=== PATIENT | female | born 1985 | race Caucasian/White ===

== ENCOUNTER 2019-11-08 08:20 | Inpatient (IN) | payer MEDICAID ==
[~2019-11-08] VITALS: Ht 157.5 cm; Wt 67.6 kg
[~2019-11-08 08:20] MED LIST: PREN-385 PO
[2019-11-08 08:23] VITALS: BP 163/104
--- NOTE | 2019-11-08 08:30 | NUR ---
Patient ambulated to bed 4. RN evaluating patient at bedside.
--- NOTE | 2019-11-08 08:40 | NUR ---
PT C/O OF LEFT CHEST PAIN 7/10 UPON BREATHING AND RADIATES TO LEFT ARM FEW HOURS PTC , PT AWAKE , ALERT , AFIBRILE , AMBULATORY WITH STEADY GAIT. SCE , CBS BLF , FLAY SOFT NABS NONTENDER . PMHS HTN MEDS HTN
--- NOTE | 2019-11-08 08:46 | NUR ---
dr vogel at bedside evaluating pt
[2019-11-08] MEDS ORDERED: NITROGLYCERIN 0.4 MG TAB SL ONE ×2 (08:50→09:25)
[2019-11-08] MEDS ORDERED: ASPIRIN 81 MG TAB.CHEW PO ONE (08:50)
--- NOTE | 2019-11-08 09:00 | NUR ---
KWAME ANTONIO AT BEDSIDE DOIN EKG.
--- NOTE | 2019-11-08 09:01 | NUR ---
LAB AT BEDSIDE DRAWING BLOOD.
[2019-11-08 09:10] LABS: BASOPHILS % (AUTO) 0.9 % (0.0-2.0); EOSINOPHILS # (AUTO) 0.1 K/uL (0-0.4); EOSINOPHILS % (AUTO) 2.2 % (0.0-4.0); HEMATOCRIT 38.8 % (36-48); HEMOGLOBIN 13.3 g/dL (12.0-16.0); LYMPHOCYTES # (AUTO) 0.5 K/uL (2.5-16.5); MEAN CORPUSCULAR HEMOGLOBIN 33 pg (27-31); MEAN CORPUSCULAR HGB CONC 34 g/dL (33-37); MEAN CORPUSCULAR VOLUME 95.6 fL (80-94); MONOCYTES # (AUTO) 0.5 K/uL (0.8-1.0); MONOCYTES % (AUTO) 9.2 % (1.7-9.3); NEUTROPHILS % (AUTO) 78.7 % (42.2-75.2); PLATELET COUNT (AUTO) 297 K/uL (140-450); RED BLOOD CELL COUNT(AUTO) 4.06 MIL/uL (4.20-5.40); RED CELL DISTRIBUTION WIDTH 13.8 % (11.6-13.7); WHITE BLOOD COUNT (AUTO) 5.1 K/uL (4.8-10.8)
--- NOTE | 2019-11-08 09:15 | NUR ---
XRAY AT BEDSIDE .
--- NOTE | 2019-11-08 09:24 | NUR ---
DR CANELA AT BEDSIDE REEVALUATING PT.
[2019-11-08 09:31] LABS: ALBUMIN 3.7 g/dL (3.4-5.0); ANION GAP 9.2 (8-16); CREATININE 0.9 mg/dL (0.6-1.3); POTASSIUM 3.2 mmol/L (3.5-5.1); TOTAL BILIRUBIN 0.8 mg/dL (0.0-1.0)
[2019-11-08] MEDS ORDERED: ONDANSETRON 4 MG/2 ML VIAL IVP ONE (10:00)
[2019-11-08] MEDS ORDERED: MORPHINE SULFATE 2 MG/ML SYR IVP ONE (10:00)
[2019-11-08] MEDS ORDERED: ACETAMINOPHEN EXTRA STRENGTH 500 MG TAB PO ONE (10:00)
[2019-11-08] MEDS ORDERED: MAGNESIUM OXIDE 400 MG TAB PO ONE (10:20)
[2019-11-08] MEDS ORDERED: LORazepam 2 MG/ML VIAL IM/IVP PRN (10:20)
[2019-11-08] MEDS ORDERED: HYDROcodone/APAP 5/325 MG 1 TAB TAB PO PRN (10:20)
[2019-11-08] MEDS ORDERED: MORPHINE SULFATE 2 MG/ML SYR IVP PRN (10:20)
[2019-11-08] MEDS ORDERED: ZOLPIDEM 5 MG TAB PO PRN (10:20)
[2019-11-08] MEDS ORDERED: DOCUSATE SODIUM 100 MG GELCAP PO PRN (10:20)
[2019-11-08] MEDS ORDERED: ACETAMINOPHEN 325 MG TAB PO PRN (10:20)
[2019-11-08] MEDS ORDERED: POTASSIUM CHLORIDE 10 MEQ TABER PO ONE (10:20)
[2019-11-08] MEDS ORDERED: ONDANSETRON 4 MG/2 ML VIAL IM/IVP PRN (10:20)
[2019-11-08] MEDS ORDERED: NITROGLYCERIN 0.4 MG TAB SL PRN (10:25)
[2019-11-08] MEDS ORDERED: CHLO50TA33 PO (10:40)
[2019-11-08 10:50] VITALS: BP 147/96
--- NOTE | 2019-11-08 10:50 | NUR ---
RECEIVED PT FROM ER NURSE, PT RESTING IN BED, PT AAOX4, PT HAS LEFT AC 20G, SKIN INTACT, RESPIRATIONS ARE EVEN AND UNLABORED ON ROOM AIR, PT IS STABLE, DX CHEST PAIN, PT DENIES ANY PAIN, PT INTRODUCE TO THE ROOM, INTRODUCE SELF, UPDATED WHITEBOARD, SAFETY MEASURES IN PLACE, ALL NEEDS MET AT THIS TIME, WILL CONTINUE TO MONITOR.
--- NOTE | 2019-11-08 10:52 | NUR ---
Patient will be admitted to care of DR baxter. Admited to rust. Will go to room 105b. Belongings list completed. Report to leeann lunsford.
[2019-11-08 10:54] LABS: APPEARANCE,URINE CLEAR (CLEAR); BILIRUBIN,URINE NEGATIVE (NEGATIVE); BLOOD, URINE 2+ (NEGATIVE); COLOR,URINE DARK YELLOW (YELLOW); LEUKOCYTE ESTERASE ,URINE NEGATIVE (NEGATIVE); NITRITE, URINE NEGATIVE (NEGATIVE); PH,URINE 5.5 (5.0-9.0); UGLUCOSE TRACE (NEGATIVE)
[2019-11-08] MEDS ORDERED: DEXTROSE 50% 50 ML SYR IVP PRN (11:05)
[2019-11-08] MEDS ORDERED: INSULIN LISPRO SLIDING SCALE 100 UNITS/ML VIAL SUBQ PRN (11:05)
[2019-11-08 11:09] LABS: BARBITURATE, URINE NEGATIVE ng/ml (NEG <=200); BENZODIAZEPINE, URINE NEGATIVE ng/mL (NEG <=200); CANNABINOID, URINE NEGATIVE ng/mL (NEG <=50); COCAINE, URINE POSITIVE ng/mL (NEG <=300); OPIATE, URINE NEGATIVE ng/mL (NEG <=2000); PHENCYCLIDINE SCREEN,URINE NEGATIVE ng/mL (NEG <=25)
[2019-11-08 11:20] LABS: WBC,URINE 0-5 /HPF (0-5)
[2019-11-08] MEDS: BLOOD GLUCOSE MONITORING 1 DEV DEV FS SCH ×3 (11:30→20:36)
[2019-11-08] MEDS: NACL 0.9% 1,000 ML IV SCH (11:35)
[2019-11-08 11:36] LABS: CHOL/HDL RATIO 1.6 (1-4.5); PHOSPHORUS 2.7 mg/dL (2.5-4.9); THYROID STIMULATING HORMONE 2.73 uIU/mL (0.34-3.74)
[2019-11-08 12:00] VITALS: BP 145/98
[2019-11-08] MEDS ORDERED: SERT25TA84 PO (12:16)
[2019-11-08] MEDS ORDERED: SERTRALINE 50 MG TAB PO SCH (13:00)
--- NOTE | 2019-11-08 13:26 | NUR ---
ADMINISTERED ORDERED MEDICATION, EDUCATION GIVEN, PT VERBALIZED UNDERSTANDING, PT STABLE, CALL LIGHT WITHIN REACH.
--- NOTE | 2019-11-08 15:50 | NUR ---
PT SITTING IN BED WATCHING TV, NO SIGNS OF DISTRESS NOTED, RESPIRATIONS ARE EVEN AND UNLABORED, CALL LIGHT WITHIN REACH.
[2019-11-08 16:00] VITALS: BP 164/103
--- NOTE | 2019-11-08 17:00 | NUR ---
NOTIFIED DR GRAYSON PT BLOOD PRESSURE 164/103, DR STATED TO CONTINUE TO MONITOR. WILL RE-CHECK BLOOD PRESSURE IN 1 HOUR.
--- NOTE | 2019-11-08 19:00 | NUR ---
GAVE REPORT TO NIGHT NURSE FOR CONTINUITY OF CARE, PT STABLE.
--- NOTE | 2019-11-08 19:01 | NUR ---
RECEIVED BEDSIDE SHIFT REPORT FROM DAYSMDFT NURSE SLATER FOR CONTINUITY OF CARE. PT AWAKE IN BED. BLOOD PRESSURE ASSESSED DUE TO REPORT OF ELEVATED BP: 151/108. PT RESPIRATIONS EVEN AND UNLABORED ON RA. SAFETY MEASURES IN PLACE. CALL-LIGHT WITHIN REACH WILL INFORM .
[2019-11-08] MEDS ORDERED: METOPROLOL 25 MG TAB ONE (19:36)
[2019-11-08 19:37] VITALS: BP 145/102
[2019-11-08] MEDS ORDERED: CRUSHER, PILL MC ONE (19:42)
--- NOTE | 2019-11-08 19:44 | NUR ---
INFORMED MD YODER ABOUT PT ELEVATED B/P 151/108. PER OK TO ADMINISTER LOPRESSOR NOW AND REASSESS B/P IN 1 HOUR. MEDICATION ADMINISTERED PT TOLERATED WELL. NO SIGNS OF DISTRESS NOTED. RESPIRATIONS EVEN AND UNLABORED. PT DENIES PAIN. SAFETY MEASURES IN PLACE CALL LIGHT WITHIN REACH. WILL CONTINUE TO MONITOR
--- NOTE | 2019-11-08 20:36 | NUR ---
ADMINISTERED 2100 MEDICATIONS. PT B/S 144 NO COVERAGE REQUIRED. PATIENT TOLERATED MEDICATION WELL.
--- NOTE | 2019-11-08 20:55 | NUR ---
B/P REASSESSED. PT BP 148/96 PULSE 59. SPO2: 98%. NO SIGNS OF DISTRESS NOTED. PATIENT AWAKE IN ROOM. WILL CONTINUE TO MONITOR
[2019-11-08] MEDS ORDERED: METOPROLOL 25 MG TAB PO SCH (21:00)
[2019-11-08] MEDS ORDERED: ATORVASTATIN 20 MG TAB PO SCH (21:00)
--- NOTE | 2019-11-08 22:00 | NUR ---
MADE ROUNDS. PT STILL AWAKE. NO C/O ANY DISCOMFORT NOR PAIN NOTED.
--- NOTE | 2019-11-09 | NUR ---
LATEST BP TAKEN 145/94. NO C/O ANY DISCOMFORT NOTED. WILL CONTINUE TO MONITOR.
[2019-11-09 00:06] VITALS: BP 145/94
--- NOTE | 2019-11-09 02:00 | NUR ---
MADE ROUNDS. ASLEEP. NO S/S OF ANY PAIN NOTED. WILL CONTINUE TO MONITOR.
[2019-11-09] MEDS: NACL 0.9% 1,000 ML IV SCH (02:59)
[2019-11-09 04:00] VITALS: BP 159/110
--- NOTE | 2019-11-09 04:00 | NUR ---
BLOOD PRESSURE ELEVATED 159/110,HR-72 R-18 O2 SAT 99% RA. DR. YODER MADE AWARE. WILL ORDER BP MED.
[2019-11-09] MEDS ORDERED: METOPROLOL 25 MG TAB PO SCH ×2 (04:30→09:00)
[2019-11-09] MEDS ORDERED: METOPROLOL 25 MG TAB ONE (04:31)
[2019-11-09] MEDS: BLOOD GLUCOSE MONITORING 1 DEV DEV FS SCH (05:28)
[2019-11-09 06:30] VITALS: BP 154/98
--- NOTE | 2019-11-09 06:30 | NUR ---
BLOOD PRESSURE WAS RECHECKED RESULT 154/98 HR-53,R-18 , O2 SAT 97%. WILL ENDORSE TO AM NURSE.
--- NOTE | 2019-11-09 07:10 | NUR ---
RECEIVE REPORT FROM NIGHT NURSE FOR CONTINUITY OF CARE, [id number], , PT IS STABLE WITH EVEN AND UNLABORED RESPIRATIONS ON ROOM AIR. PT HAS LEFT AC 20G SALINE LOCK, SKIN INTACT, INTRODUCE SELF, UPDATED WHITEBOARD, SAFETY MEASURES IN PLACE, CALL LIGHT WITHIN REACH.
--- NOTE | 2019-11-09 07:15 | NUR ---
ENDORSED PATIENT TO DAYSHIFT NURSE BRYON. BESIDE REPORT PROVIDED FOR CONTINUITY OF CARE. PT IN STABLE CONDITION
[2019-11-09 07:24] LABS: BASOPHILS % (AUTO) 1.3 % (0.0-2.0); EOSINOPHILS # (AUTO) 0.2 K/uL (0-0.4); EOSINOPHILS % (AUTO) 6.3 % (0.0-4.0); HEMATOCRIT 41.3 % (36-48); LYMPHOCYTES # (AUTO) 1.1 K/uL (2.5-16.5); LYMPHOCYTES % (AUTO) 30.4 % (20.5-51.1); MEAN CORPUSCULAR HEMOGLOBIN 33 pg (27-31); MEAN CORPUSCULAR HGB CONC 34 g/dL (33-37); MONOCYTES # (AUTO) 0.4 K/uL (0.8-1.0); MONOCYTES % (AUTO) 11.2 % (1.7-9.3); NEUTROPHILS # (AUTO) 1.9 K/uL (1.8-7.7); NEUTROPHILS % (AUTO) 50.8 % (42.2-75.2); PLATELET COUNT (AUTO) 290 K/uL (140-450); RED BLOOD CELL COUNT(AUTO) 4.26 MIL/uL (4.20-5.40); RED CELL DISTRIBUTION WIDTH 13.9 % (11.6-13.7); WHITE BLOOD COUNT (AUTO) 3.7 K/uL (4.8-10.8)
[2019-11-09 07:32] LABS: ANION GAP 9.2 (8-16); CREATININE 0.8 mg/dL (0.6-1.3); POTASSIUM 4.2 mmol/L (3.5-5.1)
[2019-11-09 07:44] LABS: PHOSPHORUS 3.4 mg/dL (2.5-4.9)
[2019-11-09 08:00] VITALS: BP 150/107
--- NOTE | 2019-11-09 08:39 | NUR ---
ADMINISTERED SCHEDULED MEDICATION, PT EDUCATION GIVEN, PT VERBALIZED UNDERSTANDING, PT TOLERATED MEDICATION WELL, PT IS STABLE, CALL LIGHT WITHIN REACH.
--- NOTE | 2019-11-09 08:45 | NUR ---
PATIENT HAS BEEN SCREENED AND CATEGORIZED MODERATE NUTRITION RISK. PATIENT WILL BE SEEN WITHIN 3-5 DAYS OF ADMISSION. 11/10/19 11/12/[address]
[2019-11-09] MEDS ORDERED: SERTRALINE 50 MG TAB PO SCH (09:00)
[2019-11-09] MEDS ORDERED: CHLORTHALIDONE 25MG TABLET PO SCH (09:00)
[2019-11-09] MEDS ORDERED: LISINOPRIL 5 MG TAB PO SCH ×2 (09:00)
[2019-11-09] MEDS ORDERED: ASPIRIN 81 MG TAB.CHEW PO SCH (09:00)
--- NOTE | 2019-11-09 11:00 | NUR ---
PT SITTING IN BED WATCHING TV, RESPIRATIONS ARE EVEN AND UNLABORED ON ROOM AIR, PT IS STABLE, CALL LIGHT WITHIN REACH.
[2019-11-09] MEDS ORDERED: INFLUENZA VACCINE QUAD 0.5 ML SYR IMVAC PRN (11:45)
--- NOTE | 2019-11-09 12:10 | NUR ---
PT DISCHARGED HOME. IV TAKEN OUT, PT DISCHARGE INSTRUCTIONS GIVEN, PT RECEIVED FLU VACCINE AND EDUCATION, PNA- N/A, PT AMBULATED TO LOBBY WITH STEADY GAIT, PT STABLE.
== END 2019-11-09 12:10 | disposition home or self-care (01) | DRG 756 ==
LOC: MED 08:20 → MTU 10:19
PROVIDERS: ADMIT General Practice; ATTEND General Practice
DX: F41.9 Anxiety disorder, unspecified (principal); E87.6 Hypokalemia; F14.10 Cocaine abuse, uncomplicated; F15.10 Other stimulant abuse, uncomplicated; I10 Essential (primary) hypertension; R73.9 Hyperglycemia, unspecified; Z79.899 Other long term (current) drug therapy; Z98.82 Breast implant status; Z82.49 Family history of ischemic heart disease and other diseases of the circulatory system; Z23 Encounter for immunization
CPT/HCPCS: 36415; 71045; 80048; 80053; 80305; 81001; 82948; 83036; 83690; 83735; 83880; 84100; 84134; 84443; 84484; 85025; 85610; 85730; 87081; 93005; 96374; 96375; 99291; J2270; J2405; J7030; Q0092

== ENCOUNTER 2022-01-21 21:28 | Emergency (ER) | payer MEDICAID ==
[~2022-01-21] VITALS: Ht 157.5 cm; Wt 68.0 kg
[~2022-01-21 21:28] MED LIST changes: +CHLO50TA33 PO; -PREN-385 PO; +SERT-514 PO
[2022-01-21 21:45] VITALS: BP 141/60
--- NOTE | 2022-01-22 00:14 | NUR ---
called first time- no show in lobby or outside.
--- NOTE | 2022-01-22 00:27 | NUR ---
Called second time- no show in lobby or outside.
--- NOTE | 2022-01-22 00:36 | NUR ---
PATIENT LEFT WITHOUT BEING SEEN BY DR. SCHULZ. NO FURTHER CARE PROVIDED FOR PATIENT.
== END 2022-01-22 00:36 | disposition left against medical advice (07) ==
LOC: MED 21:28
DX: S00.85XA Superficial foreign body of other part of head, initial encounter (principal); Z53.21 Procedure and treatment not carried out due to patient leaving prior to being seen by health care provider; V49.9XXA Car occupant (driver) (passenger) injured in unspecified traffic accident, initial encounter; Y93.89 Activity, other specified; Y92.410 Unspecified street and highway as the place of occurrence of the external cause; Y99.8 Other external cause status

== ENCOUNTER 2023-04-29 15:05 | Inpatient (IN) | payer MEDICAID ==
[~2023-04-29] VITALS: Ht 162.6 cm; Wt 77.6 kg
[2023-04-29 15:15] VITALS: BP 168/114; PULSE 78; RESP 17; TEMP 97.4; O2SAT 97
[2023-04-29] MEDS ORDERED: KETOROLAC 30 MG/ML VIAL IM ONE (16:10)
[2023-04-29] MEDS ORDERED: CLONIDINE HYDROCHLORIDE 0.1 MG TAB PO ONE (16:10)
[2023-04-29] MEDS ORDERED: MAG SULF 2000 MG/WATER PREMIX 50 ML IV ONE (17:05)
[2023-04-29 17:11] LABS: APPEARANCE,URINE CLEAR (CLEAR); BILIRUBIN,URINE NEGATIVE (NEGATIVE); BLOOD, URINE 1+ (NEGATIVE); COLOR,URINE YELLOW (YELLOW); LEUKOCYTE ESTERASE ,URINE NEGATIVE (NEGATIVE); NITRITE, URINE NEGATIVE (NEGATIVE); PROTEIN,URINE 1+ (NEGATIVE); UGLUCOSE NEGATIVE (NEGATIVE); UROBILINOGEN,URINE 0.2 EU/dL (0.2 - 1)
[2023-04-29 17:31] LABS: BACTERIA,URINE 2+ /HPF (None Seen); SQUAMOUS EPITHELIAL CELL,UR 20-50 /LPF (0-3 (FEW)); WBC,URINE NONE SEEN /HPF (0-5)
[2023-04-29 17:44] LABS: BASOPHILS % (AUTO) 0.7 % (0.0-2.0); EOSINOPHILS % (AUTO) 0.2 % (0.0-4.0); HEMATOCRIT 35.6 % (36-48); HEMOGLOBIN 12.2 g/dL (12.0-16.0); LYMPHOCYTES % (AUTO) 16.3 % (20.5-51.1); MEAN CORPUSCULAR HEMOGLOBIN 34 pg (27-31); MEAN CORPUSCULAR HGB CONC 34 g/dL (33-37); MEAN CORPUSCULAR VOLUME 99.1 fL (80-94); MONOCYTES # (AUTO) 0.7 K/uL (0.8-1.0); MONOCYTES % (AUTO) 10.8 % (1.7-9.3); NEUTROPHILS # (AUTO) 4.6 K/uL (1.8-7.7); PLATELET COUNT (AUTO) 181 K/uL (140-450); RED BLOOD CELL COUNT(AUTO) 3.59 MIL/uL (4.20-5.40); WHITE BLOOD COUNT (AUTO) 6.4 K/uL (4.8-10.8)
[2023-04-29 17:58] VITALS: O2SAT 97
[2023-04-29] MEDS ORDERED: MORPHINE SULFATE 4 MG/ML SYR IVP ONE (18:05)
[2023-04-29] MEDS ORDERED: ONDANSETRON 4 MG/2 ML VIAL IVP ONE (18:05)
[2023-04-29 18:16] LABS: ALANINE AMINOTRANSFERASE 19 U/L (12-78); ALBUMIN 3.7 g/dL (3.4-5.0); ALKALINE PHOSPHATASE 61 U/L (50-136); ANION GAP 12.8 (8-16); ASPARTATE AMINOTRANSFERASE 43 U/L (15-37); CALCIUM 7.3 mg/dL (8.5-10.1); CARBON DIOXIDE 30.9 mmol/L (21-32); CHLORIDE 98 mmol/L (98-107); CREATININE 0.7 mg/dL (0.6-1.3); GFR ARICAN-AMERICAN 120 mL/min (>90); GFR NON ARICAN-AMERICAN 99 mL/min (>90); GLUCOSE 102 mg/dL (74-106); SODIUM SERUM 139 mmol/L (136-145); TOTAL BILIRUBIN 0.8 mg/dL (0.0-1.0); TOTAL PROTEIN, SERUM 7.2 g/dL (6.4-8.2); UREA NITROGEN, BLOOD 2 mg/dL (7-18)
[2023-04-29 18:25] LABS: POTASSIUM 2.7 mmol/L (3.5-5.1)
[2023-04-29] MEDS ORDERED: NACL 0.9% 1,000 ML IV ONE (18:25)
[2023-04-29] MEDS ORDERED: POTASSIUM CHLORIDE 20% 40 MEQ/15 ML UDC PO ONE (18:25)
[2023-04-29] MEDS ORDERED: ASPIRIN 325 MG TAB PO ONE (18:45)
[2023-04-29] MEDS ORDERED: KCL 20 MEQ IN 100 mL PREMIX 200 ML IV ONE (18:45)
[2023-04-29 20:16] VITALS: O2SAT 100
[2023-04-29] MEDS ORDERED: NACL 0.9% 1,000 ML IV SCH (20:40)
[2023-04-29] MEDS ORDERED: HYDROcodone/APAP 7.5/325 MG 1 TAB PO PRN (20:40)
[2023-04-29] MEDS ORDERED: POTASSIUM CHLORIDE 10 MEQ TABER PO PRN (20:40)
[2023-04-29] MEDS ORDERED: DOCUSATE SODIUM 100 MG GELCAP PO PRN (20:40)
[2023-04-29] MEDS ORDERED: guaiFENesin DM 200/20 MG-10 ML 10 ML UDC PO PRN (20:40)
[2023-04-29] MEDS ORDERED: ZOLPIDEM 5 MG TAB PO PRN (20:40)
[2023-04-29] MEDS ORDERED: ONDANSETRON 4 MG/2 ML VIAL IM/IVP PRN (20:40)
[2023-04-29] MEDS ORDERED: ACETAMINOPHEN 325 MG TAB PO PRN (20:40)
[2023-04-29] MEDS ORDERED: hydrALAZINE 20 MG/ML VIAL IVP PRN (20:55)
[2023-04-29 22:03] LABS: AMPHETAMINE, URINE NEGATIVE ng/ml (NEG <=1000); BARBITURATE, URINE NEGATIVE ng/ml (NEG <=200); BENZODIAZEPINE, URINE NEGATIVE ng/mL (NEG <=200); CANNABINOID, URINE NEGATIVE ng/mL (NEG <=50); COCAINE, URINE POSITIVE ng/mL (NEG <=300); OPIATE, URINE NEGATIVE ng/mL (NEG <=2000); PHENCYCLIDINE SCREEN,URINE NEGATIVE ng/mL (NEG <=25)
[2023-04-30 00:09] VITALS: O2SAT 100
[2023-04-30 02:10] VITALS: PULSE 72; RESP 16; O2SAT 99
[2023-04-30 04:00] VITALS: BP 125/77; PULSE 78; RESP 18; TEMP 97; O2SAT 100
[2023-04-30 05:14] LABS: BASOPHILS % (AUTO) 0.6 % (0.0-2.0); EOSINOPHILS # (AUTO) 0.1 K/uL (0-0.4); EOSINOPHILS % (AUTO) 1.1 % (0.0-4.0); HEMATOCRIT 32.6 % (36-48); LYMPHOCYTES % (AUTO) 15.8 % (20.5-51.1); MEAN CORPUSCULAR HEMOGLOBIN 34 pg (27-31); MEAN CORPUSCULAR HGB CONC 34 g/dL (33-37); MEAN CORPUSCULAR VOLUME 101.1 fL (80-94); MONOCYTES # (AUTO) 0.7 K/uL (0.8-1.0); MONOCYTES % (AUTO) 10.7 % (1.7-9.3); NEUTROPHILS # (AUTO) 4.5 K/uL (1.8-7.7); NEUTROPHILS % (AUTO) 71.8 % (42.2-75.2); PLATELET COUNT (AUTO) 153 K/uL (140-450); RED BLOOD CELL COUNT(AUTO) 3.23 MIL/uL (4.20-5.40); RED CELL DISTRIBUTION WIDTH 17.2 % (11.6-13.7); WHITE BLOOD COUNT (AUTO) 6.3 K/uL (4.8-10.8)
[2023-04-30 05:52] LABS: ANION GAP 10.4 (8-16); CARBON DIOXIDE 28.7 mmol/L (21-32); CREATININE 0.5 mg/dL (0.6-1.3); POTASSIUM 3.1 mmol/L (3.5-5.1); TOTAL BILIRUBIN 1.2 mg/dL (0.0-1.0)
[2023-04-30] MEDS ORDERED: DOCUSATE SODIUM 100 MG GELCAP PO PRN (06:50)
[2023-04-30] MEDS ORDERED: NACL 0.9% 1,000 ML IV SCH (06:50)
[2023-04-30] MEDS ORDERED: guaiFENesin DM 200/20 MG-10 ML 10 ML UDC PO PRN (06:50)
[2023-04-30] MEDS ORDERED: HYDROcodone/APAP 7.5/325 MG 1 TAB PO PRN (06:50)
[2023-04-30] MEDS ORDERED: ZOLPIDEM 5 MG TAB PO PRN (06:50)
[2023-04-30] MEDS ORDERED: ONDANSETRON 4 MG/2 ML VIAL IM/IVP PRN (06:50)
[2023-04-30] MEDS ORDERED: POTASSIUM CHLORIDE 10 MEQ TABER PO PRN (06:50)
[2023-04-30] MEDS ORDERED: ACETAMINOPHEN 325 MG TAB PO PRN (06:50)
[2023-04-30 08:00] VITALS: BP 135/83; PULSE 72; PULSE 74; PULSE 78; RESP 18; TEMP 97.9; O2SAT 100; O2SAT 99
[2023-04-30] MEDS ORDERED: PANTOPRAZOLE 40 MG TABEC PO SCH ×2 (09:00)
[2023-04-30] MEDS ORDERED: ECOTRIN 81 MG TABEC PO SCH (09:00)
[2023-04-30 09:41] LABS: INR 0.99 (0.8-1.2); PARTIAL THROMBOPLASTIN TIME 24.5 secs (22-35.6); PROTHROMBIN TIME 10.4 secs (10.8-13.4)
[2023-04-30 09:44] LABS: CHOL/HDL RATIO 1.4 (1-4.5); FREE T4 (FREE THYROXINE) 0.74 ng/dL (0.76-1.46); MAGNESIUM 1.7 mg/dL (1.8-2.4); THYROID STIMULATING HORMONE 6.02 uIU/mL (0.34-3.74)
[2023-04-30 12:00] VITALS: BP 127/82; PULSE 72; PULSE 73; RESP 18; TEMP 98.7; O2SAT 99
[2023-04-30] MEDS ORDERED: lisinopriL 10 MG TAB PO SCH (15:15)
[2023-04-30] MEDS ORDERED: POTASSIUM CHLORIDE 10 MEQ TABER PO SCH (15:18)
[2023-04-30] MEDS ORDERED: MAG SULF 2000 MG/WATER PREMIX 50 ML IV SCH (15:19)
[2023-04-30 16:00] VITALS: BP 126/82; PULSE 65; PULSE 73; RESP 19; TEMP 98; O2SAT 99
[2023-05-01 10:06] LABS: T4 (THYROXINE) 6.6 ug/dL (4.5-12.0)
== END 2023-04-30 18:10 | disposition left against medical advice (07) | DRG 199 ==
LOC: MED 15:05 → MTU 20:38 → MIC 04-30 00:32 → MMU 04-30 06:33
PROVIDERS: ADMIT Student in an Organized Health Care Education/Training Program; ATTEND Student in an Organized Health Care Education/Training Program
DX: I16.1 Hypertensive emergency (principal); E83.39 Other disorders of phosphorus metabolism; I24.8 Other forms of acute ischemic heart disease; E83.51 Hypocalcemia; R07.89 Other chest pain; D53.9 Nutritional anemia, unspecified; E87.6 Hypokalemia; E83.42 Hypomagnesemia; E03.9 Hypothyroidism, unspecified; E78.5 Hyperlipidemia, unspecified; Z53.29 Procedure and treatment not carried out because of patient's decision for other reasons
CPT/HCPCS: 36415; 71045; 80053; 80305; 81001; 82150; 83036; 83690; 83735; 84100; 84436; 84439; 84443; 84479; 84484; 85025; 85610; 85730; 87081; 87086; 93005; 96365; 96366; 96367; 96372; 96375; 99291; J0360; J1885; J2270; J2405; J3475; J3480; Q0092

== ENCOUNTER 2023-08-03 15:16 | Emergency (ER) | payer MEDICAID ==
[~2023-08-03] VITALS: Ht 160 cm; Wt 71.2 kg
[2023-08-03 15:44] VITALS: BP 156/109; PULSE 97; RESP 16; TEMP 97.8; O2SAT 96
[2023-08-03 15:50] VITALS: BP 156/109; PULSE 97; RESP 16; TEMP 97.8; O2SAT 96
== END 2023-08-03 15:48 | disposition left against medical advice (07) ==
LOC: MED 15:16
DX: R22.0 Localized swelling, mass and lump, head (principal); R56.9 Unspecified convulsions; Z53.21 Procedure and treatment not carried out due to patient leaving prior to being seen by health care provider
CPT/HCPCS: 99281

== ENCOUNTER 2024-03-22 14:56 | Emergency (ER) | payer MEDICAID ==
[~2024-03-22] VITALS: Ht 160 cm; Wt 68.0 kg
[2024-03-22 14:56] VITALS: BP 163/83; PULSE 85; RESP 16; TEMP 97.9; O2SAT 98
[2024-03-22 15:56] LABS: BASOPHILS # (AUTO) 0.1 K/uL (0.00-0.22); BASOPHILS % (AUTO) 0.8 % (0.0-2.0); HEMATOCRIT 35.6 % (36-48); HEMOGLOBIN 11.8 g/dL (12.0-16.0); LYMPHOCYTES # (AUTO) 1.8 K/uL (2.5-16.5); LYMPHOCYTES % (AUTO) 23.5 % (20.5-51.1); MEAN CORPUSCULAR HEMOGLOBIN 31 pg (27-31); MEAN CORPUSCULAR HGB CONC 33 g/dL (33-37); MEAN CORPUSCULAR VOLUME 94.9 fL (80-94); MONOCYTES # (AUTO) 0.6 K/uL (0.8-1.0); MONOCYTES % (AUTO) 7.4 % (1.7-9.3); NEUTROPHILS # (AUTO) 5.2 K/uL (1.8-7.7); NEUTROPHILS % (AUTO) 68.3 % (42.2-75.2); PLATELET COUNT (AUTO) 198 K/uL (140-450); RED BLOOD CELL COUNT(AUTO) 3.75 MIL/uL (4.20-5.40); RED CELL DISTRIBUTION WIDTH 17.5 % (11.6-13.7); WHITE BLOOD COUNT (AUTO) 7.6 K/uL (4.8-10.8)
[2024-03-22] MEDS: LORazepam 2 MG/ML VIAL IVP ONE (16:13)
[2024-03-22] MEDS: NACL 0.9% 1,000 ML IV ONE (16:17)
[2024-03-22 16:19] LABS: INR 1.02 (0.8-1.2); PARTIAL THROMBOPLASTIN TIME 23.3 secs (22-35.6); PROTHROMBIN TIME 10.7 secs (10.8-13.4)
[2024-03-22 16:22] LABS: ALANINE AMINOTRANSFERASE 16 U/L (12-78); ALBUMIN 3.8 g/dL (3.4-5.0); ALCOHOL, BLOOD < 3 mg/dL (<10); ALKALINE PHOSPHATASE 83 U/L (50-136); ASPARTATE AMINOTRANSFERASE 43 U/L (15-37); BILIRUBIN,DIRECT 0.3 mg/dL (0.0-0.3); TOTAL BILIRUBIN 1.3 mg/dL (0.0-1.0); TOTAL PROTEIN, SERUM 7.6 g/dL (6.4-8.2)
[2024-03-22 16:31] LABS: ANION GAP 21.7 (8-16); CALCIUM 6.5 mg/dL (8.5-10.1); CARBON DIOXIDE 24.6 mmol/L (21-32); CREATININE 0.9 mg/dL (0.6-1.3); POTASSIUM 3.3 mmol/L (3.5-5.1)
[2024-03-22] MEDS: POTASSIUM CHLORIDE 10 MEQ TABER PO ONE (17:15)
[2024-03-22] MEDS: CALCIUM GLUC 1 GM/50 mL NS BAG 50 ML IV ONE (17:18)
[2024-03-22] MEDS ORDERED: LORA-476 PO (17:55)
[2024-03-22 18:05] VITALS: BP 131/85; PULSE 87; RESP 20; TEMP 98.3; O2SAT 97
== END 2024-03-22 18:05 | disposition home or self-care (01) ==
LOC: MED 14:56
DX: F10.239 Alcohol dependence with withdrawal, unspecified (principal); R07.89 Other chest pain; I10 Essential (primary) hypertension; Z86.69 Personal history of other diseases of the nervous system and sense organs; Z79.899 Other long term (current) drug therapy; Z91.010 Allergy to peanuts; Y90.0 Blood alcohol level of less than 20 mg/100 ml
CPT/HCPCS: 36415; 71045; 80048; 80076; 82948; 83880; 84484; 85025; 85610; 85730; 93005; 96361; 96374; 99285; G0482; J0610; J2060; J7030